=== PATIENT | male | born 2000 | race Caucasian/White ===

== ENCOUNTER 2024-05-26 10:47 | Emergency (ER) | payer MEDICAID, OTHER ==
[~2024-05-26] VITALS: Ht 185.4 cm; Wt 117.3 kg
[2024-05-26 10:56] VITALS: BP 142/86; PULSE 97; RESP 20; TEMP 98.7; O2SAT 98
[2024-05-26] MEDS ORDERED: IBUP-1492 PO (11:14)
[2024-05-26] MEDS ORDERED: ACET-3385 PO (11:14)
[2024-05-26] MEDS: IBUPROFEN 600 MG TABLET PO ONE (11:22)
== END 2024-05-26 11:26 | disposition home or self-care (01) ==
LOC: EMS 10:47
DX: S39.012A Strain of muscle, fascia and tendon of lower back, initial encounter (principal); V89.2XXA Person injured in unspecified motor-vehicle accident, traffic, initial encounter; Y93.89 Activity, other specified; Y92.89 Other specified places as the place of occurrence of the external cause; Y99.8 Other external cause status
CPT/HCPCS: 99282; Z7502; Z7610